=== PATIENT | male | born 1965 | race Caucasian/White ===

== ENCOUNTER 2020-10-23 10:19 | Inpatient (IN) | payer MEDICARE, OTHER ==
[~2020-10-23] VITALS: Ht 175.3 cm; Wt 84.4 kg
[~2020-10-23 10:19] MED LIST: CYCLOBENZAPRINE10 MG PO; IBUPROFEN600 MG PO; IBUPROFEN800 MG PO
[2020-10-23 14:54] LABS: HEMOGLOBIN 13.2 gm/dl (14.0-17.5); RED BLOOD COUNT 4.54 M/UL (4.20-5.50); WHITE BLOOD COUNT 22.2 K/UL (4.5-11.0)
[2020-10-23 15:24] LABS: BUN/CREATININE RATIO 32 (0-10)
[2020-10-23 20:01] LABS: BUN/CREATININE RATIO 28 (0-10)
[2020-10-23] MEDS ORDERED: LISINOPRIL10 MG PO (22:10)
[2020-10-23] MEDS ORDERED: HYZAAR 100-251 EACH PO (22:11)
[2020-10-23] MEDS ORDERED: METFORMIN HCL1000 MG PO (22:11)
[2020-10-23 23:24] LABS: BUN/CREATININE RATIO 31 (0-10)
[2020-10-24 04:14] LABS: BUN/CREATININE RATIO 28 (0-10)
[2020-10-24 07:15] LABS: BUN/CREATININE RATIO 28 (0-10)
[2020-10-24 11:10] LABS: BUN/CREATININE RATIO 27 (0-10)
[2020-10-24 11:24] LABS: HEMOGLOBIN 12.5 gm/dl (14.0-17.5); RED BLOOD COUNT 4.23 M/UL (4.20-5.50); WHITE BLOOD COUNT 18.3 K/UL (4.5-11.0)
[2020-10-24] MEDS ORDERED: FAMOTIDINE20 MG PO (11:29)
[2020-10-24] MEDS ORDERED: ENOXAPARIN40 MG/0.4 SC (11:29)
[2020-10-24 14:58] LABS: BUN/CREATININE RATIO 18 (0-10)
== END 2020-10-24 18:15 | disposition short-term general hospital (02) | DRG 438 ==
LOC: ER1 10:19 → CCU 18:38 → CDU 18:38 → CCU 20:27
PROVIDERS: Internal Medicine; Physician Assistant Medical; ADMIT Family Medicine
DX: K86.2 Cyst of pancreas (principal); E11.00 Type 2 diabetes mellitus with hyperosmolarity without nonketotic hyperglycemic-hyperosmolar coma (NKHHC); N17.9 Acute kidney failure, unspecified; E87.1 Hypo-osmolality and hyponatremia; Z20.822 Contact with and (suspected) exposure to COVID-19; M06.9 Rheumatoid arthritis, unspecified; E87.5 Hyperkalemia; E11.65 Type 2 diabetes mellitus with hyperglycemia; D64.9 Anemia, unspecified; E87.6 Hypokalemia; Z79.4 Long term (current) use of insulin; Z82.49 Family history of ischemic heart disease and other diseases of the circulatory system; Z98.890 Other specified postprocedural states; Z95.1 Presence of aortocoronary bypass graft; Z83.3 Family history of diabetes mellitus; Z82.61 Family history of arthritis
CPT/HCPCS: 36415; 71045; 80048; 80053; 81001; 82009; 82803; 82962; 83690; 83735; 84100; 84132; 85025; 85610; 86301; 96374; 96375; 96376; 99285; J1170; J2405; Q9967; U0002

== ENCOUNTER 2021-04-17 10:38 | Emergency (ER) | payer MEDICARE, OTHER ==
[~2021-04-17 10:38] MED LIST changes: +ENOXAPARIN40 MG/0.4 SC; +FAMOTIDINE20 MG PO; +HYZAAR 100-251 EACH PO; +LISINOPRIL10 MG PO; +METFORMIN HCL1000 MG PO
[2021-04-17 11:59] LABS: HEMOGLOBIN 14.1 gm/dl (14.0-17.5); RED BLOOD COUNT 4.7 M/UL (4.20-5.50); WHITE BLOOD COUNT 12.5 K/UL (4.5-11.0)
[2021-04-17 12:21] LABS: BUN/CREATININE RATIO 17 (0-10)
== END 2021-04-17 16:41 ==
LOC: ER1 10:38
PROVIDERS: Student in an Organized Health Care Education/Training Program
DX: I63.232 Cerebral infarction due to unspecified occlusion or stenosis of left carotid arteries (principal); R51.9 Headache, unspecified; E11.9 Type 2 diabetes mellitus without complications; I10 Essential (primary) hypertension; R29.703 NIHSS score 3; Z20.822 Contact with and (suspected) exposure to COVID-19; Z79.4 Long term (current) use of insulin
CPT/HCPCS: 70450; 70496; 70498; 80053; 82140; 82962; 83605; 83690; 85025; 85610; 93005; 99285; Q9967; U0002

== ENCOUNTER → 2021-10-24 | Outpatient (CLI) | payer MEDICARE, OTHER | LOC: LAB 11:41 | DX: E11.65 Type 2 diabetes mellitus with hyperglycemia (principal) | CPT/HCPCS: 36415; 82947; 83036 ==